=== PATIENT | male | born 1945 | race Caucasian/White ===

== ENCOUNTER 2020-10-31 12:11 | Emergency (ER) | payer MEDICARE, MEDICAID ==
[~2020-10-31] VITALS: Ht 180.3 cm; Wt 79.5 kg
[2020-10-31] MEDS ORDERED: ondansetron 4mg rapidly disintigrating tab PO ONE (13:40)
[2020-10-31] MEDS ORDERED: HYDROcodone/acetaminophen 5mg/325mg tablet PO ONE (13:40)
[2020-10-31 15:19] VITALS: BP 105/62
[2020-10-31] MEDS ORDERED: HYDR-3965 PO (15:32)
[2020-10-31] MEDS ORDERED: ONDA4TAB6 PO (15:32)
== END 2020-10-31 15:48 | disposition home or self-care (01) ==
LOC: ER 12:13
DX: N43.3 Hydrocele, unspecified (principal); N50.89 Other specified disorders of the male genital organs; Z91.041 Radiographic dye allergy status; Z79.899 Other long term (current) drug therapy
CPT/HCPCS: 76870; 93976; 99284

== ENCOUNTER 2024-07-02 11:32 | Outpatient (CLI) | payer MEDICARE, MEDICAID ==
[~2024-07-02 11:32] MED LIST: ONDA4TAB6 PO
== END 2024-07-02 23:59 | disposition home or self-care (01) ==
LOC: RAD 11:32
PROVIDERS: ATTEND Family Medicine
DX: M51.379 Other intervertebral disc degeneration, lumbosacral region without mention of lumbar back pain or lower extremity pain (principal); M41.86 Other forms of scoliosis, lumbar region; M15.9 Polyosteoarthritis, unspecified
CPT/HCPCS: 72100